=== PATIENT | male | born 1975 ===

== ENCOUNTER 2019-05-20 08:09 | Outpatient (CLI) | payer OTHER ==
[2019-05-20] MEDS ORDERED: FLONASE16 GM NASAL (09:12)
== END 2019-05-20 08:20 | disposition home or self-care (01) ==
LOC: OFIC 805 08:09
DX: J31.0 Chronic rhinitis (principal); G47.39 Other sleep apnea; H61.23 Impacted cerumen, bilateral; E66.8 Other obesity